=== PATIENT | female | born 1990 | race American Indian/Alaskan Native ===

== ENCOUNTER 2019-03-26 04:13 | Inpatient (IN) | payer OTHER, MEDICAID ==
[2019-03-26] MEDS ORDERED: SUBLIMAZE IV PRN (05:20)
[2019-03-26 05:45] LABS: Hematocrit 36.1 % (30.3-42.9); Hemoglobin 12.2 gm/dl (10.1-14.3); Mean Corpuscular HGB Conc 34 % (30-34); Mean Corpuscular Volume 96 fl (79-97); Platelet Count 214 K/mm3 (140-440); Red Blood Count 3.75 M/mm3 (3.65-5.03); Red Cell Distribution Width 13.8 % (13.2-15.2)
[2019-03-26] MEDS ORDERED: XYLOCAINE 2% INFILTRATI ONE (05:49)
[2019-03-26] MEDS ORDERED: LACTATED RINGERS 1,000 ML IV SCH ×2 (06:00)
[2019-03-26] MEDS ORDERED: PITOCin/NS 20 UNIT/1000ML DRIP 20 UNITS/1,000 ML BAG IV SCH ×3 (06:00→09:28)
--- NOTE | 2019-03-26 06:03 | History and Physical Report ---
History of Present Illness Date of examination: 03/26/19 Date of admission: 03/26/19 05:30 Chief complaint: Labor History of present illness: Past History : 3 Term Births: 1 Premature Births: 0 Living Children: 1 Para: 1 Mult. Births: 0 Prev : 0 Prev. attempt? 0 Aborta: 1 Elect. Ab: 1 Spont. 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 of genital herpes: no Partner hx. of genital herpes: no Rash, Viral, or Febrile illness since last LMP? no Varicella/Chicken Pox Status: Previous Disease TB Risk: no Genetic History Congenital Heart Defect: Mom: no Dad: no Will Disease: Mom: no Dad: no Thalassemia Mom: no Dad: no Neural Tube Defect Mom: no Dad: no Down's Syndrome Mom: no Dad: no Sumanth-Sachs Mom: no Dad: no Sickle Cell Disease/Trait Mom: no Dad: no Hemophilia Mom: no Dad: no Muscular Dystrophy Mom: no Dad: no Cystic Fibrosis Mom: no Dad: no Crista Chorea Mom: no Dad: no Mental Retardation Mom: no Dad: no Fragile X Mom: no Dad: no Other Genetic/Chromosomal Disorder Mom: no Dad: no Child w/other defect Mom: no Dad: no Enviromental Exposures Enviromental Exposures Reviewed Xray Exposure: no Medication, drug, or alcohol use since LMP: no Chemical/Other Exposure: no Exposure to Cat Liter: no Hx of Parvovirus (Fifth Disease): no Occupational Exposure to Children: none Active Medications: None Current Allergies: No known allergies Past History - Obstetrical History : 2 Medications and Allergies Allergies Allergy/AdvReac Type Severity Reaction Status Date / Time No Known Allergies Allergy Unverified 06/20/16 07:58 Home Medications Medication Instructions Recorded Confirmed Last Taken Type traMADol [Ultram] 50 mg PO Q6HR PRN #20 tablet 06/20/16 Unknown Rx Active Meds: Active Medications Fentanyl (Sublimaze) 100 mcg IV Q2H PRN PRN Reason: Labor Pain Lactated Ringer's (Lactated Ringers) 1,000 mls @ 125 mls/hr IV DIRECT LEXII Oxytocin/Sodium Chloride (Pitocin/Ns 20 Unit/1000ml Drip) 20 units in 1,000 mls @ 0 mls/hr IV DIRECT LEXII Oxytocin/Sodium Chloride (Pitocin/Ns 20 Unit/1000ml Drip) 20 units in 1,000 mls @ 125 mls/hr IV DIRECT LEXII Lactated Ringer's (Lactated Ringers) 1,000 mls @ 125 mls/hr IV DIRECT LEXII Lidocaine (Xylocaine 2%) 20 ml INFILTRATI ONCE ONE Stop: 03/26/19 05:50 Mineral Oil (Mineral Oil) 30 ml PO QHS PRN PRN Reason: Constipation - Vital Signs Vital signs: Vital Signs Pulse BP 93 H 118/76 03/26/19 05:55 03/26/19 05:55 Temp Pulse Resp BP Pulse Ox 93 H 118/76 03/26/19 05:55 03/26/19 05:55 - Obstetrical FHR: category 1 Cervical Dilatation: 7 Results Result Diagrams: 03/26/19 05:25 All other labs normal. Assessment and Plan - Patient Problems (1) 39 weeks gestation of Current Visit: Yes Status: Acute (2) Active labor at term Current Visit: Yes Status: Acute
--- NOTE | 2019-03-26 06:40 | Procedure Note ---
OB Delivery Note - Delivery Date of Delivery: 03/26/19 Manager Knowledge: LAYLA MANCINI (pt fully dilated on my arrival) Estimated blood loss: 300cc - Vaginal Delivery presentation: vertex Delivery position: OA Intrapartum events: none, precipitous labor- <3hr Delivery induction: none Delivery augmentation: rupture of membranes Delivery monitor: external FHT, external uterine Route of delivery: Delivery placenta: spontaneous Delivery cord: 3 umbilical vessels Episiotomy: none Delivery laceration: none Anesthesia: none Delivery comments: SVE C.C,_2 With BBOW on my arrival ROM, clear fluid. live born female over intact perineum Baby placed skin to skin on mom's abdomen. Delayed cord clamping. FOB cut cord. Cord blood obtained. Placenta and membrane del complete and intact, 3 vessel cord. Pitocin IVFs. 8/9, EBL 300, Wgt 7-4. Mom and baby remain LDR stable. - Infant A at 1 minute: 8 at 5 minutes: 9 Gender: Female (wgt 7-4)
[2019-03-26] MEDS ORDERED: PHENERGAN PR PRN (09:28)
[2019-03-26] MEDS ORDERED: SODIUM CHLORIDE FLUSH SYRINGE 10 ML IV NR (09:28)
[2019-03-26] MEDS ORDERED: TYLENOL PO PRN (09:28)
[2019-03-26] MEDS ORDERED: ZOFRAN IV PRN (09:28)
[2019-03-26] MEDS ORDERED: PHENERGAN PO PRN (09:28)
[2019-03-26] MEDS ORDERED: LANSINOH TP PRN (09:28)
[2019-03-26] MEDS ORDERED: BENADRYL PO PRN (09:28)
[2019-03-26] MEDS ORDERED: TUCKS PAD TP PRN (09:28)
[2019-03-26] MEDS ORDERED: DULCOLAX PR PRN (10:00)
[2019-03-26] MEDS: IBUPROFEN PO SCH ×2 (10:49→17:33)
[2019-03-26 20:08] LABS: Hematocrit 34.7 % (30.3-42.9); Hemoglobin 11.3 gm/dl (10.1-14.3)
[2019-03-26] MEDS ORDERED: MILK OF MAGNESIA PO PRN (22:00)
[2019-03-26] MEDS ORDERED: MINERAL OIL PO PRN (22:00)
[2019-03-27] MEDS: IBUPROFEN PO SCH ×3 (00:23→12:27)
[2019-03-27] MEDS ORDERED: BOOSTRIX IM ONE ×2 (06:02→12:00)
--- NOTE | 2019-03-27 06:18 | Discharge Summary ---
Providers - Providers Date of Admission: 03/26/19 05:30 Date of discharge: 03/27/19 (pt agrees with d/c) Attending physician: BRITT ALEXANDER Primary care physician: BRITT ALEXANDER Hospitalization Reason for admission: active labor Delivery: Episiotomy: none Laceration: none Incision: normal Other procedures: none complications: none Discharge diagnosis: IUP at term delivered baby: female Hospital course: uncomplicated vaginal delivery pt w/o complaint VSS FF below umb Lochia small perineum intact H&H Doing well s/p vag delivery P: d/c today with instructions RTO 4 weeks PP care Condition at discharge: Good Disposition: DC-01 TO HOME OR SELFCARE - Discharge Diagnoses (1) Normal spontaneous vaginal delivery Status: Acute Comment: RTO 4 w for PP Care Plan - Provider Discharge Summary Activity: routine, no sex for 6 weeks, no heavy lifting 4 weeks, no strenuous exercise Diet: routine Instructions: routine Additional instructions: [] Smoking cessation referral if applicable(refer to patient education folder for contact #) [] Refer to [facility] Booklet Call your doctor immediately for: * Fever > 100.5 * Heavy vaginal bleeding ( >1 pad per hour) * Severe persistent headache * Shortness of breath * Reddened, hot, painful area to leg or breast * Drainage or odor from incision. * Keep incision clean and dry at all times and follow doctor's instructions regarding bathing/showering - Follow up plan Follow up: BRITT ALEXANDER MD [Primary Care Provider] - 04/25/19 (Congratulations! Please call [phone] to schedule your visit in 4 weeks. Take motrin/ibuprofen for pain/cramping. Call with any concerns.)
[2019-03-27 17:29] VITALS: BP 125/80
== END 2019-03-27 16:45 | disposition home or self-care (01) | DRG 807 ==
LOC: TRG 04:13 → LD 05:30 → OB 09:25
PROVIDERS: ADMIT Obstetrics & Gynecology; ATTEND Obstetrics & Gynecology
PROC: 10E0XZZ Delivery of Products of Conception, External Approach (ICD-10-PCS; principal; 2019-03-26)
PROC: 3E0234Z Introduction of Serum, Toxoid and Vaccine into Muscle, Percutaneous Approach (ICD-10-PCS; 2019-03-27)
PROC: 3E0234Z Introduction of Serum, Toxoid and Vaccine into Muscle, Percutaneous Approach (ICD-10-PCS; 2019-03-27)
DX: O62.3 Precipitate labor (principal); Z37.0 Single live birth; Z3A.39 39 weeks gestation of pregnancy; Z80.9 Family history of malignant neoplasm, unspecified; Z83.3 Family history of diabetes mellitus; Z82.49 Family history of ischemic heart disease and other diseases of the circulatory system; Z23 Encounter for immunization
CPT/HCPCS: 36415; 85014; 85018; 85027; 85461; 86592; 86850; 86870; 86900; 86901; 90471; 90715; G0378; J2590; J2790; J7120